=== PATIENT | male | born 1975 | race Caucasian/White ===

== ENCOUNTER 2021-03-26 17:32 | Emergency (ER) | payer MEDICAID ==
[~2021-03-26] VITALS: Ht 172.7 cm; Wt 77.0 kg
[2021-03-26] MEDS ORDERED: AMPICILLIN SOD/SULBACTAM NA 3 G in SODIUM CHLORIDE 0.9% 100 ML IV SCH (19:30)
[2021-03-26 20:32] LABS: BASOPHILS % 0.1 % (0.0-2.0); EOSINOPHILS % 0.2 % (0.0-5.0); HEMATOCRIT. 45.7 % (42.0-52.0); HEMOGLOBIN. 15.7 g/dL (14.0-18.0); LYMPHOCYTES % 24.4 % (20.0-50.0); MEAN CORPUSCULAR HEMOGLOBIN 29.7 pg (28.0-32.0); MEAN CORPUSCULAR VOLUME 86.4 fL (80.0-94.0); MEAN PLATELET VOLUME 7.2 fl (7.4-10.4); NEUTROPHILS % 68.3 % (40.0-76.0); PLATELET 331 x1000/uL (130-400); RED BLOOD CELL COUNT 5.29 mill/uL (4.7-6.1); RED CELL DISTRIBUTION WIDTH 12.6 % (11.6-14.6)
[2021-03-26 20:39] LABS: CHLORIDE 105 mEq/L (98-107)
[2021-03-26 21:15] VITALS: BP 139/93
== END 2021-03-26 21:33 | disposition home or self-care (01) ==
LOC: ER 17:32
DX: I10 Essential (primary) hypertension (principal)
CPT/HCPCS: 36415; 71045; 80053; 83880; 84484; 85025; 93005; 99284; Z7610; J0295; J7050

== ENCOUNTER 2021-07-11 08:54 | Emergency (ER) | payer MEDICAID ==
[~2021-07-11] VITALS: Ht 167.6 cm; Wt 77.0 kg
[2021-07-11] MEDS ORDERED: SODIUM CHLORIDE 0.9% 1,000 ML IV ONE (09:30)
[2021-07-11] MEDS ORDERED: LORAZEPAM 2MG/ML CPJ IV ONE (09:30)
[2021-07-11 11:07] VITALS: BP 80/44
== END 2021-07-11 13:03 | disposition home or self-care (01) ==
LOC: ER 08:58
DX: F41.9 Anxiety disorder, unspecified (principal); F10.10 Alcohol abuse, uncomplicated
CPT/HCPCS: 82962; 96361; 96374; 99283; J2060; J7030

== ENCOUNTER 2021-08-04 12:40 | Emergency (ER) | payer MEDICAID ==
[~2021-08-04] VITALS: Ht 170.2 cm; Wt 78.0 kg
[2021-08-04] MEDS ORDERED: ONDANSETRON HCL 4MG/2ML INJ IV STA (15:07)
[2021-08-04] MEDS ORDERED: SODIUM CHLORIDE 0.9% 1,000 ML IV ONE (15:15)
[2021-08-04 20:30] LABS: BASOPHILS % 0.2 % (0.0-2.0); EOSINOPHILS % 0.1 % (0.0-5.0); HEMATOCRIT. 46.9 % (42.0-52.0); HEMOGLOBIN. 16.2 g/dL (14.0-18.0); LYMPHOCYTES % 24.2 % (20.0-50.0); MEAN CORPUSCULAR HEMOGLOBIN 30.3 pg (28.0-32.0); MEAN CORPUSCULAR VOLUME 87.4 fL (80.0-94.0); MONOCYTES % 9.2 % (2.0-8.0); NEUTROPHILS % 66.3 % (40.0-76.0); PLATELET 338 x1000/uL (130-400); RED BLOOD CELL COUNT 5.36 mill/uL (4.7-6.1); RED CELL DISTRIBUTION WIDTH 12.8 % (11.6-14.6)
[2021-08-04 20:39] LABS: CHLORIDE 103 mEq/L (98-107)
[2021-08-04 20:47] LABS: ETHANOL BLOOD < 10 mg/dL
[2021-08-04] MEDS ORDERED: ACETAMINOPHEN 325MG TABLET PO STA (22:09)
[2021-08-04] MEDS ORDERED: MAGNESIUM/ALUMINUM HYDROXIDE/SIMETHICONE 30ML UDC PO STA (22:09)
[2021-08-04] MEDS ORDERED: VISCOUS LIDOCAINE 2% 15 ML UDC PO STA (22:09)
[2021-08-04] MEDS ORDERED: ONDANSETRON 4MG ODT PO STA (22:09)
[2021-08-04] MEDS ORDERED: FAMOTIDINE 20MG TABLET PO ONE (22:15)
[2021-08-04] MEDS ORDERED: OMEP20TA23 MT (23:30)
[2021-08-05 00:36] VITALS: BP 128/66
== END 2021-08-05 00:37 | disposition home or self-care (01) ==
LOC: ER 12:49
DX: R10.9 Unspecified abdominal pain (principal); F41.9 Anxiety disorder, unspecified; Z87.19 Personal history of other diseases of the digestive system
CPT/HCPCS: 36415; 76705; 80053; 80320; 83690; 85025; 99284; J7030; Q0162; G0480

== ENCOUNTER 2024-09-19 09:06 | Emergency (ER) | payer MEDICAID ==
[~2024-09-19] VITALS: Ht 170.2 cm; Wt 77.0 kg
[~2024-09-19 09:06] MED LIST: OMEP20TA23 MT
[2024-09-19 09:15] VITALS: O2SAT 98
[2024-09-19] MEDS: IBUPROFEN 600MG TABLET PO ONE (09:37)
[2024-09-19 09:45] LABS: BASOPHILS % 0.2 % (0.0-2.0); EOSINOPHILS % 0.3 % (0.0-5.0); HEMATOCRIT. 42.4 % (42.0-52.0); HEMOGLOBIN. 14.9 g/dL (14.0-18.0); LYMPHOCYTES % 29.6 % (20.0-50.0); MEAN PLATELET VOLUME 6.9 fl (7.4-10.4); MONOCYTES % 7.8 % (2.0-8.0); NEUTROPHILS % 62.1 % (40.0-76.0); PLATELET 308 x1000/uL (130-400); RED BLOOD CELL COUNT 4.82 mill/uL (4.7-6.1); RED CELL DISTRIBUTION WIDTH 12.3 % (11.6-14.6)
[2024-09-19 09:54] LABS: CLARITY URINE CLEAR (CLEAR); COLOR URINE YELLOW (YELLOW); GLUCOSE URINE NEGATIVE (NEGATIVE); KETONES URINE TRACE (NEGATIVE); LEUKOCYTE ESTERASE URINE NEGATIVE (NEGATIVE); NITRITE URINE NEGATIVE (NEGATIVE); OCCULT BLOOD URINE NEGATIVE (NEGATIVE); PH URINE 6.0 (4.5-8.0); PROTEIN URINE NEGATIVE (NEGATIVE); SPECIFIC GRAVITY URINE 1.028 (1.005-1.030); UROBILINOGEN URINE 0.2 E.U./dL (0.2-1.0)
[2024-09-19 10:01] LABS: CREATININE 0.9 mg/dL (0.6-1.3); UREA NITROGEN BLOOD 9 mg/dL (9-23)
[2024-09-19 10:03] LABS: ASPARTATE AMINOTRANSFERASE 25 IU/L (<34); BILIRUBIN DIRECT 0.4 mg/dL (<=3.0); BILIRUBIN TOTAL 1.3 mg/dL (0.1-1.0); PROTEIN TOTAL 7.0 g/dL (6.0-8.3)
[2024-09-19] MEDS ORDERED: IBUP-2029 MT (10:35)
[2024-09-19 10:52] VITALS: BP 117/73; PULSE 80; RESP 16; TEMP 36.9; O2SAT 98
== END 2024-09-19 10:54 | disposition home or self-care (01) ==
LOC: ER 09:06
DX: R10.9 Unspecified abdominal pain (principal); F41.9 Anxiety disorder, unspecified
CPT/HCPCS: 36415; 74176; 80048; 80076; 81003; 85025; 99284

== ENCOUNTER 2024-10-04 11:17 | Emergency (ER) | payer MEDICAID ==
[~2024-10-04] VITALS: Ht 170.2 cm; Wt 77.0 kg
[~2024-10-04 11:17] MED LIST changes: +IBUP-2029 MT
[2024-10-04 11:21] VITALS: O2SAT 98
[2024-10-04] MEDS: KETOROLAC 30MG/ML VIAL IM SCH (11:55)
[2024-10-04 12:34] LABS: CLARITY URINE CLEAR (CLEAR); COLOR URINE DARK YELLOW (YELLOW); GLUCOSE URINE NEGATIVE (NEGATIVE); KETONES URINE TRACE (NEGATIVE); LEUKOCYTE ESTERASE URINE TRACE (NEGATIVE); NITRITE URINE NEGATIVE (NEGATIVE); OCCULT BLOOD URINE NEGATIVE (NEGATIVE); PH URINE 6.0 (4.5-8.0); PROTEIN URINE 1+ (NEGATIVE); SPECIFIC GRAVITY URINE 1.033 (1.005-1.030); UROBILINOGEN URINE 1.0 E.U./dL (0.2-1.0)
[2024-10-04 12:51] LABS: FINE GRANULAR CASTS URINE 0-5 /lpf
[2024-10-04 12:52] LABS: MUCUS URINE 3+ /lpf (NONE/TRACE)
[2024-10-04 12:55] LABS: RBC URINE NONE SEEN /hpf (0-2)
[2024-10-04 12:56] LABS: HYALINE CASTS URINE 0-5 /lpf; SQUAMOUS EPITHELIAL CELL URINE 1+ /lpf (RARE/1+)
[2024-10-04 12:57] LABS: BACTERIA URINE TRACE
[2024-10-04] MEDS ORDERED: NAPR-681 MT (13:00)
[2024-10-04] MEDS ORDERED: BISM-77 MT (13:00)
[2024-10-04] MEDS ORDERED: GABA-1180 MT (13:00)
[2024-10-04 13:21] VITALS: BP 106/60; PULSE 75; RESP 18; TEMP 36.9; O2SAT 100
== END 2024-10-04 13:22 | disposition home or self-care (01) ==
LOC: ER 11:17
DX: M54.42 Lumbago with sciatica, left side (principal); K52.9 Noninfective gastroenteritis and colitis, unspecified; F41.9 Anxiety disorder, unspecified; Z79.899 Other long term (current) drug therapy
CPT/HCPCS: 81003; 96372; 99283; J1885; Z7610

== ENCOUNTER 2024-10-17 10:50 | Emergency (ER) | payer MEDICAID ==
[~2024-10-17] VITALS: Ht 170.2 cm; Wt 78.0 kg
[~2024-10-17 10:50] MED LIST changes: +BISM-77 MT; +GABA-1180 MT; +NAPR-681 MT
[2024-10-17 11:08] VITALS: O2SAT 100
[2024-10-17] MEDS: IBUPROFEN 600MG TABLET PO ONE (11:45)
[2024-10-17] MEDS ORDERED: IBUP-2029 MT (13:18)
[2024-10-17 13:40] VITALS: BP 118/83; PULSE 62; RESP 16; TEMP 36.6; O2SAT 100
== END 2024-10-17 13:47 | disposition home or self-care (01) ==
LOC: ER 10:50
DX: S02.2XXA Fracture of nasal bones, initial encounter for closed fracture (principal); F41.9 Anxiety disorder, unspecified; Z79.899 Other long term (current) drug therapy; X58.XXXA Exposure to other specified factors, initial encounter; Y93.67 Activity, basketball; Y92.89 Other specified places as the place of occurrence of the external cause; Y99.8 Other external cause status
CPT/HCPCS: 70486; 99284; A4606